=== PATIENT | female | born 1985 | race Caucasian/White ===

== ENCOUNTER 2017-05-11 18:11 | Emergency (ER) | payer SELFPAY | END 2017-05-11 18:20 | disposition left against medical advice (07) | LOC: EME 18:11 | DX: R42 Dizziness and giddiness (principal); Z53.21 Procedure and treatment not carried out due to patient leaving prior to being seen by health care provider ==

== ENCOUNTER 2017-07-30 20:27 | Emergency (ER) | payer BC ==
[~2017-07-30] VITALS: Ht 175.3 cm; Wt 98.7 kg
[2017-07-30 20:53] LABS: HEMATOCRIT 42.7 % (36.0-46.0); MCH 28.5 PG (29.0-34.0); MCHC 33.5 G/DL (30.0-36.0); MCV 85.2 FL (83-99); PLATELET COUNT 253 K/uL (156-360); RBC DIS.WIDTH-CV 13.2 % (11.8-14.6); RBC DIS.WIDTH-SD 40.6 % (39-53); RED BLOOD COUNT 5.01 M/uL (3.80-5.20); WHITE BLOOD COUNT 13.7 K/uL (4.1-10.2)
[2017-07-30 21:03] LABS: CHLORIDE 104 mEq/L (99-109); GLUCOSE 145 mg/dL (70-99); POTASSIUM 3.7 mEq/L (3.7-5.4); SODIUM 138 mEq/L (136-147)
[2017-07-30 21:04] LABS: ANION GAP 9 MEQ/L (2-14)
[2017-07-30 21:07] LABS: GFR ESTIMATE (CALCULATED) > 59 mL/min/
[2017-07-30 21:08] LABS: UREA NITROGEN (BUN) 11 mg/dL (9-23)
[2017-07-30 21:14] LABS: TROP-I INTERPRETATION NEGATIVE; TROPONIN-I < 0.01 ng/mL (0.0-0.30)
[2017-07-30 21:17] LABS: ADD MIUA? YES; BILIRUBIN NEGATIVE; BLOOD NEGATIVE; COLOR YELLOW ((YELLOW)); GLUCOSE (STRIP) NEGATIVE; KETONES NEGATIVE; LEUKOCYTES TRACE; NITRITE NEGATIVE; PROTEIN (STRIP) NEGATIVE; SPECIFIC GRAVITY 1.027 (1.000-1.030)
[2017-07-30 21:23] LABS: BACTERIA RARE /HPF; EPITHELIAL CELLS 1+ /HPF; MUCUS TRACE /LPF; RED BLOOD CELLS 0-5 /HPF (0-5); UCUL ADDED? NO; WHITE BLOOD CELLS 0-5 /HPF (0-5)
[2017-07-30] MEDS ORDERED: TESSALON200 MG PO (22:22)
[2017-07-30] MEDS ORDERED: ATENOLOL25 MG PO (22:22)
[2017-07-30 22:35] LABS: QUANTITATIVE HCG < 4.0 MIU/ML
[2017-07-30 23:16] VITALS: BP 123/94
== END 2017-07-30 23:18 | disposition home or self-care (01) ==
LOC: EME 20:27
PROVIDERS: Emergency Medicine
DX: J02.9 Acute pharyngitis, unspecified (principal); R00.0 Tachycardia, unspecified; R07.9 Chest pain, unspecified; R42 Dizziness and giddiness; R05 Cough; R06.00 Dyspnea, unspecified; M54.9 Dorsalgia, unspecified
CPT/HCPCS: 71020; 80048; 81003; 83880; 84443; 84484; 84702; 85027; 85379; 93005; 99281; 99285; J7030